=== PATIENT | male | born 1990 | race Caucasian/White ===

== ENCOUNTER 2018-05-09 07:57 | Emergency (ER) | payer SELFPAY | END 2018-05-09 08:21 | disposition home or self-care (01) | LOC: ERS 07:57 | DX: J06.9 Acute upper respiratory infection, unspecified (principal); F31.9 Bipolar disorder, unspecified; F41.9 Anxiety disorder, unspecified; F17.210 Nicotine dependence, cigarettes, uncomplicated | CPT/HCPCS: 99283 ==

== ENCOUNTER 2018-06-17 09:11 | Emergency (ER) | payer SELFPAY | END 2018-06-17 09:45 | disposition home or self-care (01) | LOC: ERS 09:11 | DX: L23.7 Allergic contact dermatitis due to plants, except food (principal); F41.9 Anxiety disorder, unspecified; F32.9 Major depressive disorder, single episode, unspecified; F17.210 Nicotine dependence, cigarettes, uncomplicated | CPT/HCPCS: 99282 ==

== ENCOUNTER 2019-02-11 15:26 | Emergency (ER) | payer SELFPAY ==
[2019-02-11] MEDS ORDERED: predniSONE 20 MG TAB ONE (15:50)
== END 2019-02-11 15:55 | disposition home or self-care (01) ==
LOC: ERS 15:26
DX: L23.7 Allergic contact dermatitis due to plants, except food (principal); I49.9 Cardiac arrhythmia, unspecified; F41.9 Anxiety disorder, unspecified; F32.9 Major depressive disorder, single episode, unspecified; Z87.891 Personal history of nicotine dependence
CPT/HCPCS: 99282; J7512

== ENCOUNTER 2019-10-02 20:34 | Inpatient (IN) | payer SELFPAY ==
[2019-10-02] MEDS ORDERED: cefTRIAXone\\ROCEPHIN 1 GM VIAL ONE (22:06)
[2019-10-02 22:32] LABS: #Basophils 0.1 thou/uL (0.0-0.2); #Eosinphils 0.1 thou/uL (0.0-0.7); #Lymphocytes 1.6 thou/uL (1.20-3.40); #Monocytes 0.8 thou/uL (0.11-0.59); #Neutrophils 5.3 thou/uL (1.40-6.50); %Basophils 0.7 % (0.0-1.0); %Eosinophils 1.5 % (0.0-10.0); %Lymphocytes 20.5 % (21.0-51.0); %Monocytes 9.6 % (0.0-10.0); %Neutrophils 67.8 % (42.0-75.0); Hemoglobin 14.5 g/dL (14.0-18.0); Mean Corpuscular HGB CONC 34.1 g/dL (32.0-36.0); Mean Corpuscular Hemoglobin 30.6 pg (27.0-31.0); Mean Corpuscular Volume 89.8 fL (78.0-98.0); Mean Platelet Volume 8.3 fL (7.4-10.4); Platelet Count 185 thou/uL (130-400); RBC Distribution Width 11.2 % (11.5-14.5); Red Blood Cell (RBC) Count 4.73 mill/uL (4.70-6.10); White Blood Cell (WBC) Count 7.9 thou/uL (4.8-10.8)
[2019-10-02] MEDS ORDERED: metroNIDAZOLE 500 MG/100 ML BAG ONE (22:43)
[2019-10-02 22:50] LABS: ALT (SGPT) 19 U/L (8-55); AST (SGOT) 22 U/L (5-34); Albumin 4.3 g/dL (3.5-5.0); Alkaline Phosphatase 70 U/L (40-110); Anion Gap 15 mmol/L (10-20); BUN (Urea Nitrogen) 17 mg/dL (8.9-20.6); Bilirubin, Total 0.9 mg/dL (0.2-1.2); Calc. Creatinine Clearance 0 mL/min (70-130); Carbon Dioxide 22 mmol/L (22-29); Chloride 106 mmol/L (98-107); Estimated GFR-MDRD 81; Globulin 2.9 g/dL (2.4-3.5); Glucose 92 mg/dL (70-105); Potassium 3.9 mmol/L (3.5-5.1); Protein, Total 7.2 g/dL (6.0-8.3); Sodium 139 mmol/L (136-145)
[2019-10-02] MEDS ORDERED: Rabies Vaccine Human 2.5 UNITS VIAL IM ONE (23:00)
[2019-10-03] MEDS ORDERED: Ondansetron ODT 4 MG TAB PO PRN (01:38)
[2019-10-03] MEDS ORDERED: Acetaminophen 325 MG TAB PO PRN (01:38)
[2019-10-03] MEDS ORDERED: HYDROcodone/Acetaminophen 5/325 mg Tablet PO PRN (01:38)
[2019-10-03] MEDS ORDERED: Ondansetron PF 4 MG/2 ML Vial IVP PRN (01:38)
[2019-10-03] MEDS ORDERED: Calcium Carbonate 500 MG ChewTAB PO PRN (01:42)
[2019-10-03] MEDS ORDERED: Sodium Chloride 0.9% 1,000 ML IV SCH (01:45)
[2019-10-03 01:59] VITALS: BMI 22.8
[2019-10-03] MEDS ORDERED: Vancomycin 1.5 GRAM/300 ML BAG 1.5 GM in Premix Bag 1 BAG IVPB SCH (02:30)
--- NOTE | 2019-10-03 03:46 | HP ---
PRIMARY CARE PHYSICIAN: [facility]. CHIEF COMPLAINT: Cat bite. HISTORY OF PRESENT ILLNESS: The patient is a 29-year-old male, who presented to the hospital with above complaints. Yesterday, the patient was bitten on the right middle finger by a stray cat. His dog and the stray cat got into the fight. The patient got close to look at the cat and the cat bit him and then . The patient reported that he cleaned the bite and applied a bandage. Over the last 24 hours, the patient noticed increasing redness along with swelling and red streak going up his arm. There was no fever, nausea, vomiting, or diaphoresis reported. He has [id number] pain at this site. He is up to date on his tetanus vaccination. He received IV Flagyl, ceftriaxone along with rabies vaccine and immunoglobulin. His hand x-ray was negative for acute findings. PAST MEDICAL HISTORY: 1. Dog bite to the left wrist when he was in 3rd grade. 2. Meningitis when he was in 4th grade. 3. History of irregular heartbeat. 4. Restless legs syndrome. 5. Chronic low back pain. 6. Anxiety. 7. Depression with suicidal attempt in 2014. PAST SURGICAL HISTORY: 1. Back surgery x2. 2. Hernia repair. 3. Left wrist surgery. 4. Right knee surgery. ALLERGIES: THE PATIENT DENIES ANY DRUG ALLERGIES. CURRENT HOME MEDICATIONS: Reviewed with the patient and none. SOCIAL HISTORY: The patient quit smoking last year. He also has history of methamphetamine abuse in the past. FAMILY HISTORY: Negative for heart disease. REVIEW OF SYSTEMS: All other review of systems was reviewed and was found negative. PHYSICAL EXAMINATION: VITAL SIGNS: Temperature 98.2, respirations of 16, pulse rate of 68 with a blood pressure of 117/76, and O2 saturation 100% on room air. GENERAL: A 29-year-old male, in mild distress. HEENT: Head, atraumatic and normocephalic. Sclerae anicteric. Moist mucous membranes. No oral lesion. NECK: Supple. No JVD appreciated. No carotid bruit. LUNGS: Clear to auscultation bilaterally. No wheezing, rales, or rhonchi. HEART: S1 and S2 present. Regular rate and rhythm. ABDOMEN: Soft and nontender. Bowel sounds present. EXTREMITIES: No edema or calf tenderness in lower extremity. The patient has significant swelling over the distal right middle finger with bite gomez. There is significant tenderness along with erythema. He also had some drainage earlier, which has slowed down. The range of motion was normal. NEUROLOGIC: Grossly nonfocal, moves all 4 extremities. PSYCHIATRIC: Alert, awake, and oriented x3. SKIN: As discussed above. LYMPH NODES: No palpable lymph nodes in the neck. LABORATORY FINDINGS: CBC showed WBC 7.9 with hemoglobin 14.5, hematocrit 42.4, platelet of 185. Chemistry showed sodium 139, potassium 3.9, chloride 106, bicarb 22, BUN 17, and creatinine 1.07. LFTs in normal range. Hand x-ray by my review as discussed above. IMPRESSION: 1. Infected cat bite with cellulitis. 2. Acute pain secondary to #1. 3. Anxiety. 4. History of depression. The patient denies any suicidal ideation. 5. Chronic low back pain. 6. Restless legs syndrome. 7. Former smoker. 8. Chronic kidney disease, stage 2. PLAN: The patient will be monitored on the medical floor. Wound Care will be consulted. We will continue ceftriaxone with Flagyl. We will also add empiric vancomycin until the cultures come back. Official hand x-ray report is pending at this time. There is no hand surgeon academic interventionist today. We will consult Infectious Disease, Dr. Cruz. We will continue rabies vaccination per protocol. The patient was advised to return to emergency room after discharge to complete the rabies vaccination. He is up to date on tetanus vaccination. Gentle IV hydration, regular diet. Vital signs per protocol. The patient understands the above plan of care. Job ID: [id number]
[2019-10-03] MEDS: metroNIDAZOLE 500 MG in Premix Bag 1 BAG IVPB SCH ×2 (05:40→13:17)
--- NOTE | 2019-10-03 07:18 | RAD ---
RIGHT HAND 3 VIEWS: HISTORY: Animal bite to hand. FINDINGS: No osseous abnormality identified. Mild swelling of the third finger noted. IMPRESSION: No acute osseous abnormality. POS: AGW
[2019-10-03] MEDS ORDERED: cefTRIAXone\\ROCEPHIN 2 GM in Sodium Chloride 0.9% 100 ML IVPB SCH (09:00)
[2019-10-03] MEDS ORDERED: Saccharomyces boulardii 250 MG CAP PO SCH (09:00)
[2019-10-03] MEDS ORDERED: Famotidine 20 MG TAB PO SCH (09:00)
--- NOTE | 2019-10-03 11:13 | PDOC.HOSPP ---
- Subjective Encounter Date: 10/03/19 Encounter Time: 11:00 Subjective: feels better, streaking on forearm and arm has disappeared wants to go home is able to flex his right middle finger a bit - Objective Vital Signs & Weight: Vital Signs (12 hours) Temp Pulse Resp BP BP Pulse Ox 10/03/19 08:00 59 L 10/03/19 07:50 98.2 F 59 L 16 110/57 L 95 10/03/19 02:41 99 10/03/19 01:20 98.3 F 61 16 120/78 99 Weight Weight 159 lb 4 oz Result Diagrams: 10/02/19 22:21 10/02/19 22:21 Hospitalist ROS - Medication Medications: Active Medications Generic Name Dose Route Start Last Admin Trade Name Shayna PRN Reason Stop Dose Admin Famotidine 20 mg 10/03/19 09:00 10/03/19 07:56 Pepcid PO Not Given BID RYLEE Metronidazole 500 mg/ Device 100 mls @ 100 mls/hr 10/03/19 06:00 10/03/19 05: 40 IVPB 100 mls Q8HR RYLEE Administration Ceftriaxone Sodium 2 gm/ 100 mls @ 200 mls/hr 10/03/19 09:00 10/03/19 07:53 Sodium Chloride IVPB 100 mls DAILY RYLEE Administration Sodium Chloride 1,000 mls @ 75 mls/hr 10/03/19 01:45 10/03/19 02:26 Normal Saline 0.9% IV 1,000 mls .[id number] RYLEE Administration Saccharomyces Boulardii 250 mg 10/03/19 09:00 10/03/19 07:56 Florastor PO 250 mg DAILY RYLEE Administration - Exam General Appearance: NAD, awake alert Eye: PERRL, anicteric sclera ENT: no oropharyngeal lesions, moist mucosa Neck: supple, no JVD Heart: RRR, no murmur Respiratory: no wheezes, no rales Gastrointestinal: soft, non-tender, non-distended, normal bowel sounds Extremities: no cyanosis Extremities - other findings: right middle finger has excoriations with edema Neurological: cranial nerve grossly intact, no focal deficits Psychiatric: normal affect, A&O x 3 Hosp A/P (1) Cat bite involving extremity Code(s): JJW9638 - Status: Acute (2) Cellulitis of right upper extremity Code(s): L03.113 - CELLULITIS OF RIGHT UPPER LIMB Status: Acute (3) Mood disorder Code(s): F39 - UNSPECIFIED MOOD [AFFECTIVE] DISORDER Status: Chronic (4) Chronic back pain Code(s): M54.9 - DORSALGIA, UNSPECIFIED; G89.29 - OTHER CHRONIC PAIN Status: Chronic - Plan is on ceftriaxone, flagyl and vanc will switch to augmentin on dc hemostable dc iv fluids
[2019-10-03 11:54] VITALS: BP 107/63; TEMP 97.7
[2019-10-03] MEDS ORDERED: Vancomycin 1 GM in Premix Bag 1 BAG IVPB SCH (12:00)
--- NOTE | 2019-10-03 14:35 | CON ---
DATE OF CONSULTATION: 10/03/2019 REASON FOR CONSULTATION: Cat bite, right hand. HISTORY OF PRESENT ILLNESS: Mr. Soni is a 29-year-old patient, who has a few previous medical problems that have been treated in the past as described below, but no chronic illness, and sustained a cat bite from a stray cat, which apparently went on to subsequently. The animal has been retrieved by the [facility] and is being tested for rabies at the moment. The patient was brought in. I think he received rabies vaccination and immunoglobulin treatment as well. He has been treated with Rocephin and vancomycin and there has been quite a bit of improvement since. Otherwise, he denies headaches, visual symptoms, sore throat, odynophagia, or dysphagia. No cough, sputum production, or chest pain. No abdominal pain or diarrhea. No genitourinary symptoms. No other joint symptoms. MEDICAL HISTORY: Lumbar spine fracture after accident, meningitis when he was a child, dog bite in left wrist when he was a child, restless legs syndrome, hernia repair, and other orthopedic surgeries to left wrist and knee. SOCIAL HISTORY: He does not drink. History of former drug use with methamphetamine. FAMILY HISTORY: Noncontributory. ALLERGIES: NO KNOWN DRUG ALLERGIES. CURRENT MEDICATIONS: 1. P.r.n. medications. 2. Rocephin. 3. Vancomycin. 4. Flagyl. PHYSICAL EXAMINATION: VITAL SIGNS: T-max 98.3, blood pressure 107/63, pulse 58, respirations 16, and O2 saturation 98. SKIN: Right middle finger distal aspect with inflammatory changes, erythema and scratch gomez, bite gomez in the lateral aspect. The nailbed is preserved. Range of motion is improving. No lymphadenopathy. HEENT: Ocular movements are conjugate. Oral cavity normal. NECK: Supple. No jugular vein distention. LUNGS: Symmetric, clear breath sounds. HEART: S1 and S2, regular rate. No S3 or S4. ABDOMEN: Soft. Not distended or tender. No ascites. No bladder distention. EXTREMITIES: No other joint inflammatory activity. Pulses are 2+ in dorsalis pedis. No edema. Moves extremities equally. NEUROLOGIC: His cognitive function appears to be intact. LABORATORY DATA: Fairly unremarkable. We do not have any culture reports. No samples were submitted. IMAGING: Includes a hand x-ray with no acute osseous abnormality noted. ASSESSMENT: 1. Cat bite with cellulitis. 2. Marked improvement after admission. DISCUSSION: Most cat bites are associated with resolution of inflammatory changes with outpatient treatment. Ones that require admission are usually due to Pasteurella multocida, which can be associated with various manifestations including bacteremia, septic arthritis, osteomyelitis in addition to soft tissue complications. In this case, the deeper structure involvement appears to be quite limited and I think that inflammatory process is restricted to the soft tissue and skin structures. We would advise transition to oral Cipro and Augmentin for discharge planning, treating for 2 weeks, and follow up in the outpatient setting, followup x-ray in about 2 weeks to verify that there are no developing bony abnormalities prior to discontinuing antimicrobial therapy. If bony abnormalities were noticeable in the second x-ray done in the outpatient setting, then I would advise extending the Augmentin and Cipro for another 2 to 4 weeks. Job ID: [id number]
--- NOTE | 2019-10-03 14:57 | DIS ---
DATE OF ADMISSION: 10/02/2019 DATE OF DISCHARGE: 10/03/2019 DISCHARGE DISPOSITION: Home. PRIMARY DISCHARGE DIAGNOSIS: Cat bite on right middle finger with cellulitis of the right upper extremity. Apparently, the cat bit him and then . PROCEDURES DONE DURING HOSPITALIZATION: Right hand x-ray three-view done showed no acute osseous abnormality. Blood cultures x2 preliminary results showed no growth. White count of 7.9, H and H 14 and 42, platelet count 185 with 67% neutrophils. Electrolytes stable. BUN 17 and creatinine 1.0. Liver enzymes within normal limits. Albumin is 4.3. DISCHARGE MEDICATIONS: 1. Augmentin 875 mg p.o. twice daily for 2 weeks. 2. Ciprofloxacin 500 mg p.o. twice daily for 2 weeks. 3. Motrin p.r.n. for pain. ALLERGIES: NO KNOWN DRUG ALLERGIES. DISCHARGE PLAN: The patient to follow up with his primary care physician at [facility] in [address] Cruz in 2 weeks. BRIEF COURSE DURING HOSPITALIZATION: The patient initially gave history of his dog and a stray cat getting into a fight. When he tried to go near the cat, the cat bit him and then . The cat bit him on his right middle finger and the patient developed swelling and streaking of his right upper extremity. In view of cellulitis and with the cat dying, the patient was admitted to medical floor. He was on IV antibiotics. He has received tetanus shot and rabies vaccine. The patient says that animal control has taken the cat for further examination. His dog is alive with no untoward behavioral issues. He is wanting to go home. In view of rapid improvement and the patient wanting to go home, he is being discharged. He needs to continue Augmentin and ciprofloxacin as prescribed. The patient is advised to come to the emergency room if he were to develop fever, to develop worsening of his edema. The red erythema and streaking up of his right upper extremity has resolved with IV antibiotics during his brief stay here. Please see a [id number] documentation for the day of discharge on [facility]. Job ID: [id number]
[2019-10-03] MEDS ORDERED: Bacitracin 1 PK TOP SCH (22:00)
[2019-10-05] MEDS ORDERED: Rabies Vaccine Human 2.5 UNITS VIAL IM ONE (09:00)
== END 2019-10-03 14:06 | disposition home or self-care (01) | DRG 603 ==
LOC: ERS 20:34 → ONC 23:51
PROVIDERS: ADMIT Internal Medicine; ATTEND Internal Medicine
PROC: 3E0234Z Introduction of Serum, Toxoid and Vaccine into Muscle, Percutaneous Approach (ICD-10-PCS; principal; 2019-10-02)
DX: L03.011 Cellulitis of right finger (principal); G25.81 Restless legs syndrome; F41.9 Anxiety disorder, unspecified; F32.9 Major depressive disorder, single episode, unspecified; G89.29 Other chronic pain; N18.2 Chronic kidney disease, stage 2 (mild); F15.10 Other stimulant abuse, uncomplicated; Z87.891 Personal history of nicotine dependence; W55.01XA Bitten by cat, initial encounter; Z98.890 Other specified postprocedural states; Z90.49 Acquired absence of other specified parts of digestive tract; Z23 Encounter for immunization
CPT/HCPCS: 36415; 80053; 85025; 87040; 90375; 90471; 90675; 96365; 96367; 96372; J0696; J3370; J3490